=== PATIENT | female | born 1955 | race Caucasian/White ===

== ENCOUNTER 2017-03-27 10:27 | Inpatient (IN) | payer BC ==
--- NOTE | 2017-03-18 15:36 | HP ---
HISTORY AND PHYSICAL: DATE OF ADMISSION/SURGERY: 03/27/17. DATE OF OFFICE VISIT: 03/18/17. SURGEON: Carmel Meyer MD. * (DICTATED BY BISHNU NOLAN) PROCEDURE: Bilateral total knee arthroplasty. CHIEF COMPLAINT: Bilateral knee pain. HISTORY OF PRESENT ILLNESS: Ms. Quispe is a 61-year-old female with complaints of bilateral knee pain secondary to advanced osteoarthritis. She has failed conservative management and has elected to proceed with bilateral total knee arthroplasties which are scheduled for 03/27/17. PAST MEDICAL HISTORY: Hypertension, high cholesterol, and anxiety. PAST SURGICAL HISTORY: Bilateral knee arthroscopies, cataract excision, and a cyst removal. CURRENT MEDICATIONS: 1. Lisinopril/hydrochlorothiazide 20/25 mg daily. 2. Venlafaxine 75 mg 3 times a day. 3. Atorvastatin calcium 20 mg daily. 4. Acyclovir 400 mg twice daily. ALLERGIES: To BACTRIM and BACITRACIN. FAMILY HISTORY: Cancer and heart disease. SOCIAL HISTORY: A 61-year-old female lives with her . She is an entry level accountant. She does not smoke or use drugs. She uses occasional alcohol. REVIEW OF SYSTEMS: A complete 14-point review of systems is reviewed with the patient is all negative. PHYSICAL EXAMINATION GENERAL: She is well-developed, well-nourished, in no acute distress. VITAL SIGNS: She stands 5 feet 5 inches tall, weighs 197 pounds. Her blood pressure is 124/72, heart rate 78. HEENT: Normocephalic, atraumatic. NECK: Supple. No palpable lymph nodes. PULMONARY: Lungs are clear to auscultation bilaterally. CARDIO: Regular rate and rhythm. Strong S1 and S2. ABDOMEN: Soft, nontender, nondistended. MUSCULOSKELETAL: Bilateral lower extremities: The skin is intact. There are no open wounds or abrasions. She has moderate joint effusions bilaterally. Tenderness over the medial and lateral joint lines bilaterally. No varus or valgus instability. Intact sensation. 2+ dorsalis pedis pulses bilaterally. All of her lower extremity muscular strengths are intact at 5/5 bilaterally. She has 10 to 120 degrees flexion with patellofemoral crepitus of both knees. ASSESSMENT AND PLAN: Ms. Quispe is a 61-year-old female with complaints of bilateral knee pain secondary to advanced osteoarthritis. She has failed conservative management, has elected to proceed with bilateral total knee arthroplasties which are scheduled for 03/27/[address] Meyer discussed the risks and benefits of the surgery at today's visit and all of her questions were answered. Coumadin, Colace and Percocet were sent to her pharmacy for postoperative pain control and DVT prophylaxis. She will see Dr. Meyer back 2 weeks after the surgery. BISHNU NOLAN [id number]/[facility] #: [id number] MTDNahid
[~2017-03-27 10:27] MED LIST: Buffered Lidocaine 0.9% SYRIN* 5 ML/SYR SYRINGE INTRADERM ONE; Dexamethasone IV* 4 MG/ML 1 ML (4 MG) IV SLOW PU ONE; Famotidine IV* 10 MG/ML 2 ML (20 mg) IV ONE
[2017-03-27] MEDS ORDERED: ceFAZolin 2 GM PREMIX (*) 2 GM/50 ML BAG IVPB ONE (10:50)
[2017-03-27] MEDS ORDERED: Buffered Lidocaine 0.9% SYRIN* 5 ML/SYR SYRINGE ONE (10:50)
[2017-03-27] MEDS ORDERED: Dexamethasone IV* 4 MG/ML 1 ML (4 MG) ONE (10:50)
[2017-03-27] MEDS ORDERED: Famotidine IV* 10 MG/ML 2 ML (20 mg) ONE (10:50)
[2017-03-27] MEDS ORDERED: Propofol* 10 MG/ML 20 ML BTL IV PUSH ONE ×3 (11:22→14:29)
[2017-03-27] MEDS ORDERED: Morphine PF AMP (0.5MG/ML)* 5 MG/10 ML AMP ONE (12:09)
[2017-03-27] MEDS ORDERED: Bupivacaine 0.5% SDV PF* 30 ML VIAL ONE (12:09)
[2017-03-27] MEDS ORDERED: Ondansetron INJ* 2 MG/ML VIAL ONE (12:09)
[2017-03-27] MEDS ORDERED: KETAMINE HCL* 50 MG/ML 10 ML VIAL ONE (12:09)
[2017-03-27] MEDS ORDERED: Midazolam* 1 MG/ML 5 ML VIAL (5 MG) ONE ×2 (12:09→13:20)
[2017-03-27] MEDS ORDERED: Lidocaine 2% PF * 5 ML VIAL ONE (13:35)
[2017-03-27] MEDS ORDERED: Metoclopramide IV* 5 MG/ML 2 ML VIAL ONE (13:35)
[2017-03-27] MEDS ORDERED: Glycopyrrolate IV* 0.2 MG/ML 1 ML VIAL ONE (13:37)
[2017-03-27] MEDS ORDERED: Naloxone* 0.4 MG/ML 1 ML VIAL IV PRN (13:52)
[2017-03-27] MEDS ORDERED: Nalbuphine* 20 MG/ML 1 ML VIAL IV PRN ×2 (13:52)
[2017-03-27] MEDS ORDERED: oxyCODONE/Acetamin 5/325 MG* TAB PO PRN ×2 (13:52)
[2017-03-27] MEDS ORDERED: Ondansetron INJ* 2 MG/ML VIAL IV PRN (13:52)
[2017-03-27] MEDS ORDERED: DiMENhydriNATE IV* 50 MG/ML VIAL IV PUSH PRN (13:52)
[2017-03-27] MEDS ORDERED: Scopolamine 1.5 mg* PATCH TRANSDERM SCH (14:00)
[2017-03-27] MEDS ORDERED: Ropivacaine* 300 MG in NS 0.9% 250 ML* 240 ML EPIDURAL SCH (14:00)
[2017-03-27] MEDS ORDERED: Polyethylene Glycol 3350* 17 GM PACKET PO PRN (15:55)
[2017-03-27] MEDS ORDERED: Magnesium Hydroxide LIQ* 30 ML UDC PO PRN (15:55)
[2017-03-27] MEDS ORDERED: Acetaminophen TAB* 325 MG PO PRN (15:55)
[2017-03-27] MEDS ORDERED: Bisacodyl SUPP* 10 MG SUPP PR PRN (15:55)
[2017-03-27] MEDS ORDERED: diPHENhydraMINE IV* 50 MG/ML 1 ml VIAL (BENADRYL) IV PRN (15:55)
[2017-03-27] MEDS ORDERED: Warfarin TAB(*) 6 MG PO ONE (17:00)
[2017-03-27] MEDS ORDERED: diPHENhydraMINE IV* 50 MG/ML 1 ml VIAL (BENADRYL) ONE (17:19)
--- NOTE | 2017-03-27 17:51 | RAD ---
Indication: Right knee replacement. 2 views of the right knee are reviewed. Patient is status post bipolar right knee arthroplasty in satisfactory position. IMPRESSION: Bilateral knee arthroplasty in satisfactory position.
--- NOTE | 2017-03-27 18:35 | RAD ---
Indication: Left knee pain. 2 views of left knee demonstrates left knee replacement in satisfactory position. No loosening is noted. IMPRESSION: Left knee replacement in satisfactory position.
[2017-03-27] MEDS: Docusate CAP* 100 MG PO SCH (20:44)
[2017-03-27] MEDS: CMCS:Venlafaxine TAB (NF) 25 MG TAB PO SCH (20:44)
[2017-03-27] MEDS: Clindamycin 600 MG IVPREMIX(* 600 MG/50 ML SDV IV SCH (20:46)
--- NOTE | 2017-03-27 23:10 | CONS ---
CC: BISHNU Cancino; Dr. Siu; Dr. Meyer* CONSULTATION REPORT: DATE OF CONSULT: 03/27/17 PRIMARY CARE PROVIDER: BISHNU Cancino. REASON FOR CONSULTATION: Status post bilateral knee replacements. The patient with history of hypertension. PHYSICIAN REQUESTING THE CONSULT: Dr. Meyer. CHIEF COMPLAINT: Postoperative itching and the patient on Duramorph. HISTORY OF PRESENT ILLNESS: Alejandrina Quispe is a 61-year-old female with history of bilateral knee osteoarthritis as well as hypertension, who is today status post bilateral knee replacement surgery by Dr. Meyer. The patient currently has epidural analgesia with Duramorph and complains of itching and pruritus in the skin of abdomen and lower back. The patient denies any pain. The patient is seen for postoperative evaluation for hypertension showing control. PAST MEDICAL HISTORY: 1. History of bilateral knee arthroscopies in the past. 2. History of cataract surgeries in the past. 3. History of superficial abdominal cyst removal when the patient was 9 years old. 4. Hypertension. 5. High cholesterol. 6. Anxiety. 7. History of herpes simplex. MEDICATIONS: At home include: 1. Lisinopril/hydrochlorothiazide 20/25 mg daily. 2. Venlafaxine 75 mg, the patient takes it 3 times a day. 3. Lipitor 20 mg daily. 4. Acyclovir 400 mg twice a day. ALLERGIES: Include AMPICILLIN and BACITRACIN. FAMILY HISTORY: Positive for father who of liver cirrhosis. Mother with history of pacemaker placement, hypertension, and dyslipidemia. The patient's daughter has history of hypercoagulable state. The patient's brother in his 60s secondary to esophageal cancer. SOCIAL HISTORY: The patient lives with her . She is an revenue accountant. She denies any tobacco, alcohol, or drug use. Her surrogate decision maker is her . REVIEW OF SYSTEMS: Please see history of present illness. Please note that the patient is postoperative and mildly sedated. All 12 systems were reviewed with the patient and were otherwise negative. PHYSICAL EXAM: Vital Signs: Blood pressure 122/71, respiratory rate 16, oxygen saturation 98% on 2 L of oxygen via nasal canula, temperature of 97.3, heart rate of 69. General: The patient is a 61-year-old female who is mildly obese. The patient is in no acute distress. Alert, awake, and oriented x3. HEENT: Head: Atraumatic, normocephalic. Eyes: Pupils are equal and reactive to light and accommodation. Oropharynx clear. Mucosa moist. Neck: Supple. No JVD, no bruits bilaterally. Cardiovascular: Regular rate and rhythm. No murmurs. Respiratory: Clear to auscultation bilaterally. Abdomen: Soft, nontender. Bowel sounds are present in all 4 quadrants. Extremities: Postoperative dressings in bilateral knees not removed. The patient's bilateral lower extremities are in SCDs. There is no edema present. Pulses are +2 bilaterally. There is no clubbing or cyanosis. Skin: On evaluation of the skin, no ecchymotic areas or rashes noted. Neuro Evaluation: Cranial nerves II through XII grossly intact. Speech clear. Motor strength is grossly 5/5 bilaterally. The patient is able to flex her knees despite being just postoperative. DIAGNOSTIC STUDIES/LAB DATA: None currently available. ASSESSMENT AND PLAN: 1. A 61-year-old female in postop state after bilateral knee replacement surgery. The management of pain control, intravenous fluids postoperatively will be left up to Dr. Meyer and his Orthopedic Surgical Service. 2. For the patient's history of depression and anxiety, venlafaxine is going to be continued. 3. For the patient's history of hypertension, my recommendation will be to hold the patient's antihypertensives for at least 24 hours and then restart them if the patient's blood pressure is continued to climb. Currently, the patient is normotensive and with the epidural most likely we will continue normotensive or may be even at risk for hypotension in the next 24 hours. 4. DVT prophylaxis is as per Dr. Meyer, who started the patient already on Lovenox. TIME SPENT: Approximately 52 minutes were spent on consultation of this patient. Thank you very much for consultation. We will see the patient tomorrow. [id number]/[facility] #: [id number] [facility] HOSPITALNahid
[2017-03-28 04:59] LABS: Hematocrit 30 % (35-47); Hemoglobin 10.1 g/dl (12.0-16.0)
[2017-03-28] MEDS: Clindamycin 600 MG IVPREMIX(* 600 MG/50 ML SDV IV SCH ×2 (05:02→13:00)
[2017-03-28 05:13] LABS: BUN/Creatinine Ratio 27.1 (8-20); Calcium 8.6 mg/dL (8.6-10.3); EGFR African American 108.7 (>60); EGFR Non-African American 84.5 (>60)
[2017-03-28] MEDS ORDERED: Ondansetron TAB* 4 MG PO PRN (06:00)
[2017-03-28] MEDS ORDERED: oxyCODONE/Acetamin 5/325 MG* TAB PO PRN (06:00)
[2017-03-28] MEDS ORDERED: Morphine INJ* 2 MG/ML 1 ML SYRINGE (TWO MG - NEW SYRINGE VERSION) IV PRN (06:00)
[2017-03-28] MEDS ORDERED: oxyCODONE TAB* 5 MG TAB PO PRN (06:00)
[2017-03-28] MEDS ORDERED: Ondansetron INJ* 2 MG/ML VIAL IV PRN (06:00)
[2017-03-28] MEDS: Docusate CAP* 100 MG PO SCH ×2 (08:05→22:07)
[2017-03-28] MEDS: CMCS:Venlafaxine TAB (NF) 25 MG TAB PO SCH ×3 (08:06→22:07)
[2017-03-28] MEDS: Atorvastatin* 20 MG TAB PO SCH (08:06)
[2017-03-28] MEDS: Acyclovir* 400 MG TAB PO SCH (08:06)
[2017-03-28] MEDS ORDERED: Lisinopril/HCTZ 20/25(NF) TAB PO SCH (09:00)
--- NOTE | 2017-03-28 09:14 | PN ---
Progress Note - Progress Note Date of Service: 03/28/17 SOAP: Subjective: Pt. is alert, pain controlled. Objective: BLE - drains removed, tips intact. dressings c/d/i. distally +df/pf. full slt , 2+ dp pulses. Vital Signs: Temp Pulse Resp BP Pulse Ox 98.8 F 83 18 149/71 98 03/28/17 07:28 03/28/17 07:28 03/28/17 08:05 03/28/17 07:28 03/28/17 07:59 Laboratory Results - last 24 hr 03/28/17 03/28/17 03/28/17 04:30 04:30 04:31 Hgb 10.1 L Hct 30 L INR (Anticoag Therapy) 1.05 Sodium 135 Potassium 4.0 Chloride 101 Carbon Dioxide 30 Anion Gap 4 BUN 19 Creatinine 0.70 Est GFR ( Amer) 108.7 Est GFR (Non-Af Amer) 84.5 BUN/Creatinine Ratio 27.1 H Glucose 145 H Calcium 8.6 Assessment: 61 yo F pod 1 s/p BTKA Plan: lovenox today, 8 mg coumadin tonight wbat pt/ot pmru consult
--- NOTE | 2017-03-28 10:20 | PN ---
Subjective Date of Service: 03/28/17 Interval History: Pt is off epidural anesthesia. Feels "sore" in b/l legs Objective Active Medications: Acetaminophen (Tylenol Tab*) 650 mg PO Q4H PRN PRN Reason: PAIN OR TEMPERATURE Acyclovir (Zovirax Tab*) 800 mg PO QAM [facility] Last Admin: 03/28/17 08:06 Dose: 800 mg Atorvastatin Calcium (Lipitor*) 20 mg PO QAM [facility] Last Admin: 03/28/17 08:06 Dose: 20 mg Bisacodyl (Dulcolax Supp*) 10 mg OH DAILY PRN PRN Reason: constipation Diphenhydramine HCl (Benadryl Iv*) 12.5 mg IV Q6H PRN PRN Reason: PRURITIS Last Admin: 03/27/17 17:20 Dose: 12.5 mg Docusate Sodium (Colace Cap*) 100 mg PO BID [facility] Last Admin: 03/28/17 08:05 Dose: 100 mg Enoxaparin Sodium (Lovenox(*)) 30 mg SUBCUT Q24H [facility] Clindamycin HCl/Dextrose (Cleocin 600 Mg Ivpremix(*) Sdv) 600 mg in 50 mls @ 100 mls/hr IV Q8H [facility] Stop: 03/28/17 13:29 Last Admin: 03/28/17 05:02 Dose: 100 mls/hr Lactated Ringer's (Lactated Ringers 1000 Ml Bag*) 1,000 mls @ 100 mls/hr IV PER RATE [facility] Last Admin: 03/28/17 05:01 Dose: 100 mls/hr Lactulose (Lactulose*) 30 ml PO Q6H PRN PRN Reason: constipation Magnesium Hydroxide (Milk Of Magnesia Liq*) 30 ml PO Q6H PRN PRN Reason: constipation Morphine Sulfate (Morphine Inj (Syringe)*) 2 mg IV Q2H PRN PRN Reason: PAIN Ondansetron HCl (Zofran Inj*) 4 mg IV Q6H PRN PRN Reason: nausea Ondansetron HCl (Zofran Tab*) 4 mg PO Q6H PRN PRN Reason: NAUSEA Oxycodone HCl (Roxycodone Tab*) 10 mg PO Q4H PRN PRN Reason: SEVERE PAIN Last Admin: 03/28/17 08:05 Dose: 10 mg Oxycodone/Acetaminophen (Percocet 5/325 Tab*) 1 tab PO Q3H PRN PRN Reason: PAIN - MODERATE Oxycodone/Acetaminophen (Percocet 5/325 Tab*) 2 tab PO Q3H PRN PRN Reason: PAIN - MODERATE Pharmacy Profile Note (Scopolomine Patch Remove*) 1 note PATCH OFF .AFTER 72 HOURS ONE Stop: 03/30/17 13:58 Polyethylene Glycol/Electrolytes (Miralax*) 17 gm PO DAILY PRN PRN Reason: Constipation Venlafaxine HCl (Effexor Tab (Nf)) 75 mg PO TID ANGELES PRN Reason: Protocol Last Admin: 03/28/17 08:06 Dose: 75 mg Warfarin Sodium (Coumadin Tab(*)) 8 mg PO ONCE@1700 ONE PRN Reason: Protocol Stop: 03/28/17 17:01 Vital Signs 03/27/17 03/27/17 03/27/17 10:53 16:36 16:40 Temperature 98.4 F 97.3 F Pulse Rate 69 67 60 Respiratory 18 16 16 Rate Blood Pressure 135/69 124/69 117/77 (mmHg) O2 Sat by Pulse 98 100 100 Oximetry 03/27/17 03/27/17 03/27/17 16:45 17:00 17:15 Temperature Pulse Rate 61 63 63 Respiratory 16 16 16 Rate Blood Pressure 115/69 110/64 106/64 (mmHg) O2 Sat by Pulse 100 100 100 Oximetry 03/27/17 03/27/17 03/27/17 17:22 17:30 18:09 Temperature 97.8 F Pulse Rate 69 77 Respiratory 16 16 16 Rate Blood Pressure 122/71 142/74 (mmHg) O2 Sat by Pulse 100 94 Oximetry 03/27/17 03/27/17 03/27/17 18:26 19:08 19:26 Temperature 98.8 F Pulse Rate 69 Respiratory 16 16 18 Rate Blood Pressure 150/84 (mmHg) O2 Sat by Pulse 100 Oximetry 03/27/17 03/27/17 03/27/17 19:52 20:00 20:04 Temperature 98.1 F Pulse Rate 76 Respiratory 16 14 16 Rate Blood Pressure 145/90 (mmHg) O2 Sat by Pulse 96 Oximetry 03/27/17 03/27/17 03/27/17 20:55 21:00 22:00 Temperature 99.1 F Pulse Rate 89 Respiratory 16 16 14 Rate Blood Pressure 128/79 (mmHg) O2 Sat by Pulse 100 Oximetry 03/27/17 03/28/17 03/28/17 23:54 00:56 01:52 Temperature 98.0 F Pulse Rate 96 Respiratory 16 14 16 Rate Blood Pressure 118/70 (mmHg) O2 Sat by Pulse 97 Oximetry 03/28/17 03/28/17 03/28/17 03:21 04:00 05:04 Temperature 98.3 F Pulse Rate 85 Respiratory 14 16 16 Rate Blood Pressure 133/52 (mmHg) O2 Sat by Pulse 98 Oximetry 03/28/17 03/28/17 03/28/17 07:04 07:28 07:59 Temperature 98.8 F Pulse Rate 83 Respiratory 18 17 17 Rate Blood Pressure 149/71 (mmHg) O2 Sat by Pulse 98 98 Oximetry 03/28/17 03/28/17 08:00 08:05 Temperature Pulse Rate Respiratory 18 18 Rate Blood Pressure (mmHg) O2 Sat by Pulse Oximetry Oxygen Devices in Use Now: None - 02 sat 90% Appearance: 61 yo f in nAD, AAOx3 Eyes: No Scleral Icterus, PERRLA Ears/Nose/Mouth/Throat: NL Teeth, Lips, Gums, Mucous Membranes Moist Neck: NL Appearance and Movements; NL JVP, Trachea Midline Respiratory: Symmetrical Chest Expansion and Respiratory Effort, Clear to Auscultation Cardiovascular: NL Sounds; No Murmurs; No JVD, RRR Abdominal: NL Sounds; No Tenderness; No Distention Lymphatic: No Cervical Adenopathy Extremities: No Clubbing, Cyanosis, - - b/l knees wrapped in cryo unit Skin: No Nodules or Sclerosis, - - post op dressings on both knees were not removed Neurological: Alert and Oriented x 3, NL Muscle Strength and Tone Result Diagrams: 03/28/17 04:30 03/28/17 04:30 Assess/Plan/Problems-Billing Assessment: 61 yo F with h/o HTN, herpes simplex, depression consulted for post om medical management of HTN - Patient Problems (1) Total knee replacement status Comment: b/l POD#[address] Meyer following (2) HTN (hypertension) Comment: normotensive off meds Recommend holding meds for 2 more days, or till BP increases (3) Herpes simplex Comment: controlled with Acyclovir (4) DVT prophylaxis Comment: Lovenox and coumadin as per ortho Status and Disposition: Thank you very much for consult. will sign off Please call if needed
--- NOTE | 2017-03-28 11:06 | OP ---
OPERATIVE REPORT: DATE OF OPERATION: 03/27/17 DATE OF : 51 SURGEON: Carmel Meyer MD ADMISSIONS ASSISTANT: BISHNU Gong Ms. did help throughout the procedure with preparation of the leg, wound retraction, manipulation of the knee, and wound closure. ANESTHESIOLOGIST: Dr. Kerr. ANESTHESIA: Spinal. PRE-OP DIAGNOSIS: Severe degenerative osteoarthritis of the bilateral knees. POST-OP DIAGNOSIS: Severe degenerative osteoarthritis of the bilateral knees. OPERATIVE PROCEDURE: Bilateral total knee arthroplasty. HARDWARE USED: This is cemented [employer] total knee arthroplasty hardware. Two packages of bone cement were used on each side. For the right knee, a size 5 narrow right posterior stabilized Legion Oxinium femoral component. For the tibia, size 3 right tibial baseplate. For the patella, 32- mm, 3-peg, all-poly patella; and for the insert, an 11 mm posterior stabilized size 3-4 articular insert. For the left knee, a left size 5, narrow Oxinium posterior stabilized Legion femoral component was used with a left size 4 tibial baseplate; 35-mm, 3-peg, all-poly patella and for the insert, a size 3-4 , 11-mm posterior stabilized articular insert. TOURNIQUET TIME: Through the right side 45 minutes, left side 48 minutes. COMPLICATIONS: None. ESTIMATED BLOOD LOSS: 400 cc. SPECIMENS: Bone and cartilage from the bilateral knees sent to Pathology. BRIEF HISTORY/INDICATION: Ms. Quispe is a 61-year-old female with years of increasingly severe bilateral knee pain. She elected to undergo bilateral total knee arthroplasty due to continued pain and decreased quality of life. She failed conservative treatment with antiinflammatories, pain medications, physical therapy, and intraarticular injections. Radiographs showed bone-on- bone contact and severe arthritis of the bilateral knees. She understood there was increased risk associated with bilateral knees rather than staged procedures in my opinion. She adamantly wished to proceed with bilateral total knee arthroplasty. Informed consent was obtained from the patient. She understood the risks of the procedure included, but were not limited to, bleeding, infection, damage to nearby structures, continued pain, need for further surgery, intraoperative fracture, nerve palsy, hardware failure or loosening, knee stiffness, loss of motion, stroke, heart attack, blood clot, and . She wished to proceed. INTRAOPERATIVE FINDINGS: Intraoperatively, the patient was noted to have bilateral severe end-stage arthritis. She had bilateral tricompartmental loss of cartilage, which was full thickness. DESCRIPTION OF PROCEDURE: Ms. Quispe was identified in the preanesthesia unit. Her bilateral lower extremities were both marked as the correct operative side. Informed consent was signed and placed in the chart. The patient was taken to the operating room and placed under spinal anesthesia. Albarran catheter was placed. Tourniquets were placed on the bilateral thighs. Bilateral lower extremities were prepped and draped in the usual sterile fashion. Right lower extremity was covered with a half sheet. Preop time-out was made to correctly identify the patient, side, and site. Appropriate perioperative antibiotics were given within 1 hour of incision. Surgery was started on the left knee first. Tourniquet was inflated until the tourniquet time for this procedure was 48 minutes. A 14 cm midline incision was made with the 10 blade and carried down to the extensor mechanism. A new 10 blade was used to make a standard medial parapatellar arthrotomy. Patella was subluxed laterally. Electrocautery was used to subperiosteally elevate soft tissue off the superomedial tibia to the mid sagittal plane. Any osteophytes were removed from the medial tibia. The knee was flexed up. The anterior horn of the lateral meniscus and ACL were sharply released. A drill was used to enter the distal femur. Intramedullary distal femoral cutting guide was pinned on the distal femur. Oscillating saw was used to make the appropriate distal femoral cut. The external rotation guide was pinned on the distal femur and the distal femur was sized to a size 5. Size 5 multi-cutting jig was pinned on the distal femur. The oscillating saw was used to make the appropriate chamfer cuts. The PCL was completely released. The tibia was subluxed anteriorly. Extramedullary tibial cutting guide was pinned on the proximal tibia. The oscillating saw was used to make the appropriate proximal tibial cut. This cut was made perpendicular to the mechanical axis of the tibia. The bone was carefully removed. The knee was brought out into full extension. The spacer block had good fit. Medial and lateral ligaments were well balanced. Flexion and extension gaps were well balanced. Laminar spreaders were placed both medially and laterally. Any remaining meniscus was carefully removed from the medial and lateral compartments. Posterior osteophytes were removed using a curved osteotome. The left size 5 narrow femoral component trial was impacted on to the distal femur and had good fit. The box of the posterior stabilized implant was prepared using a reamer and box cut osteotome. Size 4 tibial tray trial with an 11 mm insert trial was placed and the knee was taken through a range of motion. The knee had full extension to 130 degrees of flexion with satisfactory patellofemoral tracking. The patella was everted. A 9 mm of patellar bone and cartilage were carefully removed from the patella. The patella was sized to a size 35. The 3 peg holes were drilled through the size 35 guide. A 35 trial patella was placed and the knee was taken through a range of motion. There was satisfactory patellofemoral tracking. All trials were carefully removed. The tibia was subluxed anteriorly and sized to a size 4. The proximal tibia was prepared using a size 4 keel punch. All bony cut surfaces were copiously irrigated with sterile saline and dried. Final implants were cemented into place, starting with the tibia followed by the femur, and lastly the patella. An 11-mm insert trial was placed. The knee was brought out into full extension. The tourniquet was turned down at 48 minutes. The knee was copiously irrigated with sterile saline. Electrocautery was used to obtain meticulous hemostasis. Once the cement had fully cured, the insert trial was removed. Any excess cement was carefully removed from around the implant and capsule. Final insert chosen was an 11 mm posterior stabilized articular insert, size 3-4. This was locked into position on the tibial tray. Stability of the insert was checked and rechecked and noted to be stable. The knee was copiously irrigated with sterile saline. The extensor mechanism was closed over a medium Hemovac drain using interrupted #1 Vicryls. The rest of the incision was closed in a layered fashion using 0 and 2-0 Vicryls. Skin was closed using running 3-0 nylon suture. The incision was carefully covered with a half sheet. Attention was next turned to replacement of the right knee. Tourniquet was inflated. A 14-cm midline incision was made with a 10 blade and carried down to the extensor mechanism. A new 10 blade was used to make a standard medial parapatellar arthrotomy. The patella was subluxed laterally. Electrocautery was used to subperiosteally elevate soft tissue off the superomedial tibia to the midsagittal plane. Any medial osteophytes from the tibia were carefully removed with the rongeur. The knee was flexed up. The anterior horn of the lateral meniscus and ACL were sharply released. A drill was used to enter the distal femur. Intramedullary distal femoral cutting guide was pinned on the distal femur. Oscillating saw was used to make the appropriate distal femoral cuts. The external rotation guide was pinned on the distal femur. The distal femur was sized to a size 5. Size 5 multi-cutting jig was pinned on the distal femur. The oscillating saw was used to make the appropriate 4 chamfer cuts. The PCL was sharply released. The tibia was subluxed anteriorly. Extramedullary tibial cutting guide was pinned on the proximal tibia. The proximal tibial cut was made with an oscillating saw. This cut was made perpendicular to the mechanical axis of the tibia. The bone was carefully removed. The knee was brought out into full extension. The spacer block had good fit. There was medial and lateral ligamentous balancing. Flexion and extension gaps were well balanced. The knee was flexed up. Laminar set up mechanic automatic line was placed both medially and laterally. Any remaining meniscus was carefully removed using electrocautery. Curved osteotome was used to remove any posterior osteophytes. Tibial tray and drop alexis confirmed satisfactory tibial cut. A size 5 narrow right femoral component trial was impacted on to the distal femur and had good fit. The box for the posterior stabilized implant was prepared using the reamer and box cut osteotome. A size 4 tibial tray trial with an 11 mm insert trial was placed. The knee was taken through a range of motion and had full extension to 130 degrees of flexion. There was satisfactory patellofemoral tracking. The patella was everted. A 9 mm of patellar bone and cartilage was carefully removed using an oscillating saw. The patella was sized to a size 32. The 3 peg holes were drilled through the size 32 guide. Trial size 32 patella was placed. The knee was taken through a range of motion. There was satisfactory patellofemoral tracking. All trials were carefully removed. The tibia was subluxed anteriorly and sized to a size 4. Proximal tibia was prepared using a size 4 keel punch. All bony cut surfaces were copiously irrigated with sterile saline and dried. Final implants were cemented into place starting with the tibia followed by the femur and lastly the patella. An 11-mm insert trial was placed and the knee was brought out into full extension. Tourniquet was turned down at 45 minutes. The knee was copiously irrigated with sterile saline. Electrocautery was used to obtain meticulous hemostasis. Once the cement had fully cured, the insert trial was carefully removed. Any excess cement was removed from around the capsule and implant. Final insert chosen was an 11-mm posterior stabilized articular insert, size 3-4. This was locked into position on the tibial tray. Stability of the insert was checked and rechecked and noted to be stable. The knee was copiously irrigated with sterile saline. The extensor mechanism was closed over a medium Hemovac drain using interrupted #1 Vicryls. The rest of the incision was closed in a layered fashion using 0 and 2-0 Vicryls. Skin was closed using running 3-0 nylon suture. At this time, both incisions were covered with sterile Xeroform, 4x4's, and Webril. Shiva wrap and cold packs were placed over the dressings. The patient's anesthesia was reversed and she was taken to the PACU in stable condition. Intended weightbearing will be weightbearing as tolerated on her bilateral lower extremities. She will have Coumadin for DVT prophylaxis with a Lovenox bridge. [id number]/[facility] #: [id number] MONIQUE
[2017-03-28] MEDS: oxyCODONE/Acetamin 5/325 MG* TAB PO PRN ×3 (12:15→22:08)
[2017-03-28] MEDS ORDERED: Enoxaparin(*) 30 MG/0.3 ML SYR SUBCUT SCH (13:00)
[2017-03-28] MEDS ORDERED: Warfarin TAB(*) 4 MG PO ONE (17:00)
[2017-03-29] MEDS: oxyCODONE/Acetamin 5/325 MG* TAB PO PRN ×5 (04:12→19:53)
[2017-03-29 06:34] LABS: Hematocrit 25 % (35-47); Hemoglobin 8.7 g/dl (12.0-16.0); Mean Platelet Volume 7 um3 (7.4-10.4)
--- NOTE | 2017-03-29 07:27 | PN ---
Progress Note - Progress Note Date of Service: 03/29/17 SOAP: Subjective: Pt. is alert, reports moderate pain. Objective: BLE - dressings changed, inc c/d/i. distally nvi. Vital Signs: Temp Pulse Resp BP Pulse Ox 97.8 F 77 16 142/74 94 03/29/17 07:17 03/29/17 07:17 03/29/17 07:17 03/29/17 07:17 03/29/17 07:17 Laboratory Results - last 24 hr 03/29/17 03/29/17 06:15 06:15 Hgb 8.7 L Hct 25 L Plt Count 175 MPV 7 L INR (Anticoag Therapy) 1.99 H Assessment: 61 yo F pod 2 s/p BTKA Plan: pt.ot wbat d/c lovenox, 3 mg lovenox tonight plan d/c to [facility] today if accepted, otherwise snf on 03/30
[2017-03-29] MEDS: Acyclovir* 400 MG TAB PO SCH (08:18)
[2017-03-29] MEDS: Atorvastatin* 20 MG TAB PO SCH (08:18)
[2017-03-29] MEDS: CMCS:Venlafaxine TAB (NF) 25 MG TAB PO SCH ×3 (08:18→19:54)
[2017-03-29] MEDS: Docusate CAP* 100 MG PO SCH ×2 (09:39→19:53)
[2017-03-29] MEDS ORDERED: Warfarin TAB(*) 3 MG PO ONE (17:00)
[2017-03-30] MEDS: oxyCODONE/Acetamin 5/325 MG* TAB PO PRN ×5 (03:47→20:23)
[2017-03-30 06:09] LABS: Hematocrit 23 % (35-47); Hemoglobin 8.2 g/dl (12.0-16.0)
--- NOTE | 2017-03-30 08:32 | PN ---
Progress Note - Progress Note Date of Service: 03/30/17 SOAP: Subjective: Pt seen sitting up in bed today. States she is doing very well, pain well controlled. Denies any numbness, tingling, chest pain, coughing or calf pain. Objective: BLE - Dressings changed last evening by dr. edgar. Dressing are c/d/i. +pf/df. neurovascularly intact. Vital Signs: Vital Signs Temp 100.8 F 03/30/17 07:14 Pulse 98 03/30/17 07:14 Resp 18 03/30/17 07:14 BP 121/50 03/30/17 07:14 Pulse Ox 99 03/30/17 07:14 Intake & Output 03/29/17 03/30/17 03/30/17 18:59 06:59 18:59 Intake Total 780 860 Output Total 900 700 Balance -120 160 Intake: Oral 780 860 Output: Urine 900 700 Assessment: 61 yo F pod 3 s/p BTKA Plan: pt.ot wbat INR 3.00, hold warfarin tonight plan d/c to [facility] today if accepted.
[2017-03-30] MEDS: Docusate CAP* 100 MG PO SCH ×2 (08:38→20:20)
[2017-03-30] MEDS: CMCS:Venlafaxine TAB (NF) 25 MG TAB PO SCH ×3 (08:38→20:21)
[2017-03-30] MEDS: Acyclovir* 400 MG TAB PO SCH (08:38)
[2017-03-30] MEDS: Atorvastatin* 20 MG TAB PO SCH (08:38)
[2017-03-30] MEDS ORDERED: Scopolomine PATCH Remove* 1 NOTE MISC PATCH OFF ONE (13:57)
[2017-03-31] MEDS: oxyCODONE/Acetamin 5/325 MG* TAB PO PRN ×4 (00:14→12:51)
[2017-03-31 05:03] LABS: Hematocrit 21 % (35-47); Hemoglobin 7.3 g/dl (12.0-16.0)
[2017-03-31] MEDS: Atorvastatin* 20 MG TAB PO SCH (09:40)
[2017-03-31] MEDS: Docusate CAP* 100 MG PO SCH (09:40)
[2017-03-31] MEDS: Acyclovir* 400 MG TAB PO SCH (09:40)
[2017-03-31] MEDS: CMCS:Venlafaxine TAB (NF) 25 MG TAB PO SCH ×2 (09:41→12:52)
--- NOTE | 2017-03-31 09:58 | PN ---
Progress Note - Progress Note Date of Service: 03/31/17 SOAP: Subjective: Pt sitting up comfortably in bed. No complaint of pain. Denies dizziness/ lightheadedness, CP, SOB. Objective: Dressings changed. Incisions clean, Dry, intact. Calves soft, nontender. 2+ DP pulses. Sensation intact to light touch. Vital Signs: Temp Pulse Resp BP Pulse Ox 99.0 F 84 16 122/65 100 03/31/17 07:42 03/31/17 07:42 03/31/17 09:40 03/31/17 07:42 03/31/17 07:42 Laboratory Last Values Hgb 7.3 g/dl (12.0-16.0) L 03/31/17 04:43 Hct 21 % (35-47) L 03/31/17 04:43 Plt Count 175 10^3/ul (150-450) 03/29/17 06:15 MPV 7 um3 (7.4-10.4) L 03/29/17 06:15 INR (Anticoag Therapy) 4.03 (0.89-1.11) H 03/31/17 04:43 Sodium 135 mmol/L (133-145) 03/28/17 04:30 Potassium 4.0 mmol/L (3.5-5.0) 03/28/17 04:30 Chloride 101 mmol/L (101-111) 03/28/17 04:30 Carbon Dioxide 30 mmol/L (22-32) 03/28/17 04:30 Anion Gap 4 mmol/L (2-11) 03/28/17 04:30 BUN 19 mg/dL (6-24) 03/28/17 04:30 Creatinine 0.70 mg/dL (0.51-0.95) 03/28/17 04:30 Est GFR ( Amer) 108.7 (>60) 03/28/17 04:30 Est GFR (Non-Af Amer) 84.5 (>60) 03/28/17 04:30 BUN/Creatinine Ratio 27.1 (8-20) H 03/28/17 04:30 Glucose 145 mg/dL (70-100) H 03/28/17 04:30 Calcium 8.6 mg/dL (8.6-10.3) 03/28/17 04:30 Assessment: 61 yo female s/p B/L TKA POD #4 Plan: OOB PT/OT WBAT B/L LE Pain control Acute postop blood loss anemia - VS stable. Asymptomatic. Pt refusing transfusion. Hold coumadin today. INR 4.03 A[address] SNF placement. D/C today when bed available.
[2017-03-31 12:45] VITALS: BP 119/54
--- NOTE | 2017-04-01 04:01 | DS ---
DISCHARGE SUMMARY: DATE OF ADMISSION: 03/27/17 DATE OF DISCHARGE: 03/31/17 ATTENDING PHYSICIAN: Carmel Meyer MD* (dictated by BISHNU Nunez). PRINCIPAL DIAGNOSIS: Bilateral knee osteoarthritis. SECONDARY DIAGNOSES: 1. Hypertension. 2. High cholesterol. 3. Anxiety. PRINCIPAL PROCEDURE: Bilateral total knee arthroplasty. REASON FOR HOSPITALIZATION: Ms. Quispe is a 61-year-old female with complaints of bilateral knee pain secondary to advanced osteoarthritis. She has failed conservative management and has elected to proceed with bilateral total knee arthroplasties, which were scheduled for 03/27/[address] Meyer. HOSPITAL COURSE: The patient was admitted to the hospital on 03/27/17 and underwent bilateral total knee arthroplasties without any complications. She was taken to the recovery room subsequently via surgical stay unit in a stable condition. Her vital signs remain stable throughout the hospital course, including remaining afebrile. She has participated in occupational therapy and physical therapy and did well with both. She had daily INRs drawn for Coumadin dosing. She was therapeutic at the day of discharge. Her INR was 4.03 and her Coumadin was held on the day of discharge. Her hemoglobin and hematocrit were checked throughout the hospital course. Her hemoglobin was 7.3 and hematocrit was 21 on the day of discharge. The patient refused transfusion. She was asymptomatic and vital signs remained stable. She was taking Percocet for pain control and she was discharged to [facility] on 03/31/17 in a stable condition. DISCHARGE INSTRUCTIONS: Weightbearing as tolerated in the bilateral lower extremities. Wound care, okay to shower. No bathing, swimming, submerging wound. Use gentle soap, pat dry, cover with gauze, Shiva wrap or tape. Call orthopedic office for increasing drainage, redness, increased pain or fever. Go to ER with shortness of breath or chest pain. Diet, regular diet, increase fluids and fiber to prevent constipation. Continue to use stool softeners, call office if no bowel movement within 48 hours. Continue physical therapy and occupational therapy exercises as shown. [facility] nurse to do wound checks. [facility] nurse to draw blood, work for INR on Mondays and . Coumadin dosing, hold Coumadin for tonight. Antibiotics required prior to any dental work. Follow up with Dr. Meyer within 10-14 days. Call for appointment. BISHNU NUNEZ [id number]/[facility] #: [id number] [facility]
== END 2017-03-31 12:57 | DRG 302 ==
LOC: AA 10:27 → SSU 18:00
PROVIDERS: ADMIT Orthopaedic Surgery Adult Reconstructive Orthopaedic Surgery; ATTEND Orthopaedic Surgery Adult Reconstructive Orthopaedic Surgery
PROC: 0SRC0J9 Replacement of Right Knee Joint with Synthetic Substitute, Cemented, Open Approach (ICD-10-PCS; 2017-03-27)
PROC: 0SRD0J9 Replacement of Left Knee Joint with Synthetic Substitute, Cemented, Open Approach (ICD-10-PCS; principal; 2017-03-27 12:00)
DX: M17.0 Bilateral primary osteoarthritis of knee (principal); D62 Acute posthemorrhagic anemia; I10 Essential (primary) hypertension; E78.00 Pure hypercholesterolemia, unspecified; F41.9 Anxiety disorder, unspecified; B00.9 Herpesviral infection, unspecified; F32.9 Major depressive disorder, single episode, unspecified; E66.3 Overweight; M25.762 Osteophyte, left knee; M25.761 Osteophyte, right knee; Z98.49 Cataract extraction status, unspecified eye; Z88.1 Allergy status to other antibiotic agents; Z88.2 Allergy status to sulfonamides; Z82.49 Family history of ischemic heart disease and other diseases of the circulatory system; Z72.89 Other problems related to lifestyle; Z88.0 Allergy status to penicillin; Z83.79 Family history of other diseases of the digestive system; Z80.0 Family history of malignant neoplasm of digestive organs; Z68.33 Body mass index [BMI] 33.0-33.9, adult
CPT/HCPCS: 36415; 80048; 85014; 85018; 85049; 85610; 94760; A9270-GY; C1776; J0690; J1100; J1200; J1650; J2250; J2300; J2405; J2704; J2765; J2795

== ENCOUNTER 2017-03-31 10:07 | Inpatient (IN) | payer BC ==
[2017-03-31] MEDS ORDERED: Senna TAB PO PRN (13:18)
[2017-03-31] MEDS ORDERED: Magnesium Hydroxide LIQ* 30 ML UDC PO PRN (13:18)
[2017-03-31] MEDS ORDERED: Acetaminophen TAB* 325 MG PO PRN (13:18)
[2017-03-31] MEDS ORDERED: Bisacodyl SUPP* 10 MG SUPP PR PRN (13:18)
[2017-03-31] MEDS ORDERED: oxyCODONE TAB* 5 MG TAB PO PRN (13:24)
[2017-03-31] MEDS: Venlafaxine EXT RELEASE CAP* 75 MG PO SCH ×2 (14:06→20:11)
[2017-03-31] MEDS: oxyCODONE TAB* 5 MG TAB PO PRN (17:30)
[2017-03-31] MEDS: oxyCODONE SR TAB(*) 20 MG TAB.SR PO SCH (20:10)
[2017-03-31] MEDS: Docusate CAP* 100 MG PO SCH (20:11)
--- NOTE | 2017-03-31 22:08 | HP ---
ADMISSION HISTORY AND PHYSICAL: DATE OF ADMISSION: 03/31/17 REASON FOR ADMISSION: Bilateral total knee replacements. HISTORY OF ILLNESS: Alejandrina Quispe is a 61-year-old female. She has little in the way of past medical history. She has a medical history significant for hypertension. The patient has had difficulty with pain in both knees for several years. She sought out consultation with Dr. Carmel Meyer. X-rays were taken, which revealed severe bilateral [id number] arthritis. The patient felt that her pain in both knees was so significant that she did not want to have one knee done at a time and asked Dr. Meyer to do a bilateral total knee replacement. Dr. Meyer agreed and she was admitted to [facility] on 03/27/17 and underwent a bilateral total knee replacement that day. Postoperatively, she was started on Coumadin, but her INR is currently supratherapeutic. Hemoglobin and hematocrit this morning was low, but she was not transfused. She did have acute blood loss anemia. She was felt to have physical therapy and occupational therapy needs. She is now being admitted for inpatient rehab, so that she may return to independent living. PAST MEDICAL HISTORY: Significant for hypertension, as mentioned. She also has a history of herpes simplex and high cholesterol. CURRENT MEDICATIONS: Include: 1. Effexor 75 mg 3 times a day. 2. Lipitor 20 mg daily. 3. Acyclovir 800 mg daily. Prior to surgery, she was also taking Zestoretic 20/25 daily. ALLERGIES: To AMPICILLIN and BACITRACIN. SOCIAL HISTORY: She lives with her in a 2-story house, but can stay on one floor. There is a ramp to enter the house. She is a nonsmoker, nondrinker. She was working full-time prior to admission. REVIEW OF SYSTEMS: The patient reports her last bowel movement was today. She has no current chest pain or shortness of breath. PHYSICAL EXAMINATION VITAL SIGNS: The patient's temperature is 99.3, blood pressure is 135/65, pulse is 83, respirations 20. HEENT: Her extraocular movements are intact. Tongue is midline. NECK: Supple. LUNGS: Sounds clear to auscultation bilaterally. HEART: Heart sounds are regular. S1, S2 are audible. ABDOMEN: Soft and nontender. EXTREMITIES: Her knees were examined. She had suture lines on both knees, which were clean and dry and intact. Stitches were in place. Her peripheral pulses were intact. NEUROLOGIC: She is awake, alert, and oriented. Her muscle strength is 5/5 in both upper extremities. Lower extremities were about 3/5, secondary to pain. She could not do a straight leg raise on either side. FUNCTIONAL EXAM: She transfers with minimal amount of assistance. ASSESSMENT: Bilateral total knee replacements. PLAN: Our plan is to integrate her into comprehensive therapeutic rehab program with the following goals: 1. Physical Therapy will see the patient. They are going to work on functional transfer training, ambulation training with a walker. 2. Occupational Therapy will see the patient and work on her activities of daily living including toileting and toilet transfers. 3. Coumadin for DVT prophylaxis. Her Coumadin is on hold because of her supratherapeutic INR. 4. Adequate analgesia. 5. Her bowels will be regulated. 6. family services assistant will be closely involved to make sure that any services and equipment that the patient requires are in place prior to discharge. 7. Family training as appropriate. 8. Advance directives: The patient is a full code. 9. For her acute blood loss anemia, we may need to transfuse her. We will check her hemoglobin and hematocrit in the morning. 10. Home with appropriate services. ESTIMATED LENGTH OF STAY: Five to seven days. [id number]/[facility] #: [id number] MONIQUE
[2017-04-01] MEDS: Acyclovir* 400 MG TAB PO SCH (07:58)
[2017-04-01] MEDS: Hydrochlorothiazide TAB* 25 MG PO SCH (07:58)
[2017-04-01] MEDS: Venlafaxine EXT RELEASE CAP* 75 MG PO SCH ×3 (07:59→20:16)
[2017-04-01] MEDS: oxyCODONE TAB* 5 MG TAB PO PRN ×4 (07:59→22:57)
[2017-04-01] MEDS: Docusate CAP* 100 MG PO SCH ×2 (07:59→20:16)
[2017-04-01 08:42] LABS: Hematocrit 24 % (35-47); Hemoglobin 8.1 g/dl (12.0-16.0); Mean Corpuscular HGB Conc 34 g/dl (31-36); Mean Corpuscular Hemoglobin 32 pg (27-31); Mean Corpuscular Volume 93 fL (80-97); Mean Platelet Volume 7 um3 (7.4-10.4); Red Blood Count 2.55 10^6/ul (4.0-5.4); Red Cell Distribution Width 13 % (10.5-15); White Blood Count 8.6 10^3/ul (3.5-10.8)
[2017-04-01] MEDS ORDERED: Lisinopril TAB* 10 MG PO SCH (09:00)
[2017-04-01 09:03] LABS: BUN/Creatinine Ratio 19.3 (8-20); Calcium 8.3 mg/dL (8.6-10.3); EGFR African American 137.8 (>60); EGFR Non-African American 107.1 (>60); Globulin 2.9 g/dL (2-4); Potassium 3.7 mmol/L (3.5-5.0); Total Bilirubin 0.6 mg/dL (0.2-1.0); Total Protein 5.9 g/dL (6.4-8.9)
--- NOTE | 2017-04-01 12:56 | PMRUTEAM ---
PMRU: Goals Current Status: Nursing: Current Status Skin Deviations [Bilateral Incision Knee] Skin Deviation Description [ bilat knee Bilateral Knee] Physical Therapy: Current Status Bed Mobility Assistance Not Tested Transfer Moblility Assistance Supervision Transfer/Bed Mobility Rolling Walker Recommended Devices Ambulation Assistance Supervision Ambulation Assistive Devices Rolling Walker Number of Feet Patient 150' Ambulated Stairs Assistance Supervision Stairs Recommended Devices Two Rails Number of Stairs 3 Occupational Therapy: Current Status Lower Body Dressing Supervision,Min Assist Bathing Supervision Toileting Supervision Toilet Transfer Supervision Shower Transfer Supervision Eating Independent Rec Therapy: Current Status Summary of Assessment and Pt. was open to conversation - very engaged Clinical Impression throughout and identified with numerous interests and activities. Pt. states she enjoys her life even though the past year has been very difficult for her emotionally with many losses. Provided support and offered additional help if needed. Pt . was in good spirits and open to continued leisure visits. Treatment Goals Pt. will engage in leisure activities while on the unit. Treatment Plan Provide RT services and encourage involvement. Social Work: Current Status Discharge Plan return home with home care svs and family support Potential for Family Training pt's is involved and attentive Anticipated Discharge Home Destination Discharge With home care svs and family support Goals: Physical Therapy: Updated Goals Transfer/Bed Mobility Rolling Walker Recommended Devices Occupational Therapy: Initial Goals Goals to be Completed in (Days 1-2 ) Upper Body Bathing Routine Independent Lower Body Bathing Routine Modified Independent with Upper Body Dressing Routine Independent Lower Body Dressing Routine Modified Independent with Lower Body Dressing Assistive Pt may wish to have assist with socks at Devices home, in which case min A. Toilet Hygeine and Clothing Modified Independent with Management Routine Toilet Transfer Routine Modified Independent with Step-In Shower Transfer Modified Independent with Routine Functional Transfers for ADL Modified Independent with Grooming Routine Independent Feeding Routine Independent Social Work: Goals Discharge Plan return home with home care svs and family support Potential for Family Training pt's is involved and attentive Anticipated Discharge Home Destination Discharge With home care svs and family support Care Plan: Care Plan ADL's - Improve/Maintain Start: 04/01/17 12:00 Freq: DAILY Status: Active Target: Activity Type Activity Date Activity User E-Sign Co-Sign Detail Recorded Client Recorded Date Recorded By Document 04/01/17 12:00 [id number] [id number] 04/01/17 12:01 [id number] 04/01/17 12:00 PMRU Outcome: ADL's/ADL Transfers Orders/Interventions Occupational Therapy Evaluation & Treatment Device Yes Patient to receive OT 5x/wk for 60-120 Therex min/day Self Care Management Group Therapy UE/LE ADL's with Assist Yes: mod I ADL Transfers with Assist Yes: mod I Toileting: Transfers,Clothing Management Yes: mod I ,Hygeine w/Assist Progression Toward Outcome/Goals Progressing DVT Prophylaxis- Improve/Maintain Start: 03/31/17 21:25 Freq: DAILY Status: Active Target: Activity Type Activity Date Activity User E-Sign Co-Sign Detail Recorded Client Recorded Date Recorded By Document 04/01/17 00:45 [id number] 04/01/17 00:48 [id number] 04/01/17 00:45 PMRU Outcome: DVT Prophylaxis Outcome/Goals Remains Free of DVT Complies with DVT Prophylaxis /Treatment TEDS Stockings on Every AM, Off at HS Education-Improve/Maintain Start: 03/31/17 21:25 Freq: DAILY Status: Active Target: Activity Type Activity Date Activity User E-Sign Co-Sign Detail Recorded Client Recorded Date Recorded By Document 04/01/17 00:45 [id number] [email or web address] 04/01/17 00:48 [id number] 04/01/17 00:45 PMRU Outcome: Education Outcome/Goals Demonstrate/ Verbalize Understanding of Written Discharge Instructions Demonstrates Skills Encourage Questions /GI-Improve/Maintain Start: 03/31/17 21:25 Freq: DAILY Status: Active Target: Activity Type Activity Date Activity User E-Sign Co-Sign Detail Recorded Client Recorded Date Recorded By Document 04/01/17 00:45 [id number] [id number] 04/01/17 00:48 [id number] 04/01/17 00:45 PMRU Outcome: Genitourinary/ Gastrointestinal Genitourinary- Outcome/Goals Maintain/ Achieve Urinary Continence Gastrointestinal-Outcome/Goals Prevent Constipation Bowel Regularity at Home Mobility- Improve/Maintain Start: 03/31/17 14:52 Freq: DAILY Status: Active Target: Activity Type Activity Date Activity User E-Sign Co-Sign Detail Recorded Client Recorded Date Recorded By Document 04/01/17 12:35 [id number] 04/01/17 12:35 [id number] 04/01/17 12:35 PMRU Outcome: Mobility Physical Therapy Evaluation and Yes Treatment Activity OOB with Assistance Yes WBAT Yes: BLE Device Yes Assistance Yes Patient to be seen 5x/wk for 60-120 min/ Therex day for: Mobility Training Gait Training Balance Outcome/Goals Maintain/ Achieve Baseline Mobility Status Improve Mobility Status Demonstrates Proper Use of Assistive Devices Free from Complications of Immobility Progression Toward Outcome/Goals Progressing Bed Mobility Yes: Independent Transfers Yes: Modified independent with RW Gait x ft Yes: Modified independent 150 ' with RW Up/Down Stairs Yes: Independent 4 steps 2 rails With HEP Yes: Independent Goal Comment B knee 0-90 Pain/Comfort- Improve/Maintain Start: 03/31/17 21:25 Freq: DAILY Status: Active Target: Activity Type Activity Date Activity User E-Sign Co-Sign Detail Recorded Client Recorded Date Recorded By Document 04/01/17 00:45 [id number] [email or web address] 04/01/17 00:48 [id number] 04/01/17 00:45 PMRU Outcome: Pain/Comfort Outcome/Goals Demonstrates Knowledge and Use of Available Comfort Measures Achieves Acceptable Comfort/Pain Level as Determined by Patient/Condit Maintain Comfort Level Allowing Patient to Fully Participate in Rehab Respiratory - Improve/Maintain Start: 03/31/17 21:25 Freq: DAILY Status: Active Target: Activity Type Activity Date Activity User E-Sign Co-Sign Detail Recorded Client Recorded Date Recorded By Document 04/01/17 00:45 [id number] [email or web address] 04/01/17 00:48 [id number] 04/01/17 00:45 PMRU Outcome: Respiratory Does Patient Have a Trach No Safety- Improve/Maintain Start: 03/31/17 21:25 Freq: DAILY Status: Active Target: Activity Type Activity Date Activity User E-Sign Co-Sign Detail Recorded Client Recorded Date Recorded By Document 04/01/17 00:45 [id number] 04/01/17 00:48 [id number] 04/01/17 00:45 PMRU Outcome: Safety Outcome/Goals Remain Free of Injury or Harm Cooperates with Safety Measures for Least Restrictive Environment Skin- Improve/Maintain Start: 03/31/17 21:25 Freq: DAILY Status: Active Target: Activity Type Activity Date Activity User E-Sign Co-Sign Detail Recorded Client Recorded Date Recorded By Document 04/01/17 00:45 [id number] [email or web address] 04/01/17 00:48 [id number] 04/01/17 00:45 PMRU Outcome: Skin Outcome/Goals Maintain/ Improve Skin Intergrity Free from Decubitus Surgical Incisions Healing Medicine Note: Length of Stay: 2 days Anticipated Discharge Destination: Home Tentative Discharge Date: 04/03/17 Discharged to: Home
[2017-04-01] MEDS ORDERED: Warfarin TAB(*) 1 MG PO SCH (17:00)
[2017-04-01] MEDS: Atorvastatin* 20 MG TAB PO SCH (17:42)
[2017-04-01] MEDS: oxyCODONE SR TAB(*) 20 MG TAB.SR PO SCH (20:16)
--- NOTE | 2017-04-01 21:20 | PN ---
Progress Note - Progress Note Date of Service: 04/01/17 Note: Alejandrina visited. She was discussed in interdisciplinary plan of care rounds. Doing very well with her ability to ambulate and transfer. Back on Lisinopril and HCTZ. Will increase Lisinopril to 20. Current Medications Acetaminophen (Tylenol Tab*) 650 mg PO Q6H PRN PRN Reason: FEVER/PAIN Acyclovir (Zovirax Tab*) 800 mg PO DAILY [facility] Last Admin: 04/01/17 07:58 Dose: 800 mg Atorvastatin Calcium (Lipitor*) 20 mg PO 1700 [facility] Last Admin: 04/01/17 17:42 Dose: 20 mg Bisacodyl (Dulcolax Supp*) 10 mg [place] DAILY PRN PRN Reason: CONSTIPATION Docusate Sodium (Colace Cap*) 100 mg PO BID [facility] Last Admin: 04/01/17 20:16 Dose: 100 mg Hydrochlorothiazide (Hydrodiuril Tab*) 25 mg PO DAILY [facility] Last Admin: 04/01/17 07:58 Dose: 25 mg Lisinopril (Prinivil Tab*) 10 mg PO DAILY [facility] Last Admin: 04/01/17 07:59 Dose: 10 mg Magnesium Hydroxide (Milk Of Magnesia Liq*) 30 ml PO Q6H PRN PRN Reason: CONSTIPATION Oxycodone HCl (Roxycodone Tab*) 5 mg PO Q4H PRN PRN Reason: PAIN - MODERATE TO SEVERE Last Admin: 04/01/17 00:20 Dose: 5 mg Oxycodone HCl (Roxycodone Tab*) 10 mg PO Q4H PRN PRN Reason: PAIN - SEVERE Last Admin: 04/01/17 15:55 Dose: 10 mg Oxycodone HCl (Oxycontin(*)) 20 mg PO BEDTIME [facility] Last Admin: 04/01/17 20:16 Dose: 20 mg Senna (Senokot Tab*) 2 tab PO BEDTIME PRN PRN Reason: CONSTIPATION Venlafaxine HCl (Effexor Xr Cap*) 75 mg PO TID [facility] Last Admin: 04/01/17 20:16 Dose: 75 mg Warfarin Sodium (Coumadin Tab(*)) 1 mg PO DAILY@1700 [facility] PRN Reason: Protocol Last Admin: 04/01/17 17:42 Dose: 1 mg Laboratory Results - last 24 hr 04/01/17 04/01/17 04/01/17 08:17 08:18 08:18 WBC 8.6 RBC 2.55 L Hgb 8.1 L Hct 24 L MCV 93 MCH 32 H MCHC 34 RDW 13 Plt Count 289 MPV 7 L Neut % (Auto) 66.5 Lymph % (Auto) 18.5 L Merrick % (Auto) 9.7 H Eos % (Auto) 4.4 Baso % (Auto) 0.9 Absolute Neuts (auto) 5.7 Absolute Lymphs (auto) 1.6 Absolute Monos (auto) 0.8 Absolute Eos (auto) 0.4 Absolute Basos (auto) 0.1 Absolute Nucleated RBC 0.01 Nucleated RBC % 0.1 INR (Anticoag Therapy) 2.12 H Sodium 138 Potassium 3.7 Chloride 104 Carbon Dioxide 29 Anion Gap 5 BUN 11 Creatinine 0.57 Est GFR ( Amer) 137.8 Est GFR (Non-Af Amer) 107.1 BUN/Creatinine Ratio 19.3 Glucose 101 H Calcium 8.3 L Total Bilirubin 0.60 AST 29 ALT 29 Alkaline Phosphatase 61 Total Protein 5.9 L Albumin 3.0 L Globulin 2.9 Albumin/Globulin Ratio 1.0 Vital Signs Temp Pulse Resp BP Pulse Ox 99.4 F 94 18 137/63 95 04/01/17 04:31 04/01/17 04:31 04/01/17 20:16 04/01/17 04:31 04/01/17 05:28 EXAM: HEENT: EOMI LUNGS: CTA Bilaterally HEART: Reg rhythm ABDOMEN: Soft, +BS EXTREMITIES: Wounds clean ASSESSMENT/PLAN: 1. S/P bilateral TKR: PT/OT. ROM exercises 2. HTN: back on HCTZ/Lisinopril, increase lisinopril to 20 3. DVT Prophylaxis: Coumadin to restart, INR down to 2.12. Check INR in am 4. Acute blood loss anemia: Hb/Hct darrel to 8.1/24 5. Analgesia: She did not sleep with OxyContin last night. Will see how it works tonight. October d/c 6. Code Status: full code
[2017-04-02] MEDS: Hydrochlorothiazide TAB* 25 MG PO SCH (08:08)
[2017-04-02] MEDS: Venlafaxine EXT RELEASE CAP* 75 MG PO SCH ×3 (08:08→20:15)
[2017-04-02] MEDS: Docusate CAP* 100 MG PO SCH ×2 (08:09→20:15)
[2017-04-02] MEDS: Acyclovir* 400 MG TAB PO SCH (08:09)
[2017-04-02] MEDS: Lisinopril TAB* 10 MG PO SCH (08:09)
[2017-04-02] MEDS: oxyCODONE TAB* 5 MG TAB PO PRN (08:09)
[2017-04-02] MEDS ORDERED: Warfarin TAB(*) 1 MG PO SCH (12:54)
[2017-04-02] MEDS: oxyCODONE/Acetamin 5/325 MG* TAB PO PRN ×3 (13:06→21:40)
[2017-04-02] MEDS ORDERED: Warfarin TAB(*) 2 MG PO SCH (17:00)
[2017-04-02] MEDS: Atorvastatin* 20 MG TAB PO SCH (17:22)
--- NOTE | 2017-04-02 19:43 | PN ---
Progress Note - Progress Note Date of Service: 04/02/17 Note: Alejandrina was visited. She is doing well. Therapy notes read and reviewed. She is ready for discharge in the morning. INR below 2 today, will increase Coumadin. Back on regular Zestoretic dose Current Medications Acetaminophen (Tylenol Tab*) 650 mg PO Q6H PRN PRN Reason: FEVER/PAIN Acyclovir (Zovirax Tab*) 800 mg PO DAILY [facility] Last Admin: 04/02/17 08:09 Dose: 800 mg Atorvastatin Calcium (Lipitor*) 20 mg PO 1700 [facility] Last Admin: 04/02/17 17:22 Dose: 20 mg Bisacodyl (Dulcolax Supp*) 10 mg [place] DAILY PRN PRN Reason: CONSTIPATION Docusate Sodium (Colace Cap*) 100 mg PO BID [facility] Last Admin: 04/02/17 08:09 Dose: 100 mg Hydrochlorothiazide (Hydrodiuril Tab*) 25 mg PO DAILY [facility] Last Admin: 04/02/17 08:08 Dose: 25 mg Lisinopril (Prinivil Tab*) 20 mg PO DAILY [facility] Last Admin: 04/02/17 08:09 Dose: 20 mg Magnesium Hydroxide (Milk Of Magnesia Liq*) 30 ml PO Q6H PRN PRN Reason: CONSTIPATION Oxycodone/Acetaminophen (Percocet 5/325 Tab*) 2 tab PO Q4H PRN PRN Reason: PAIN - SEVERE Last Admin: 04/02/17 17:21 Dose: 2 tab Senna (Senokot Tab*) 2 tab PO BEDTIME PRN PRN Reason: CONSTIPATION Venlafaxine HCl (Effexor Xr Cap*) 75 mg PO TID [facility] Last Admin: 04/02/17 14:20 Dose: 75 mg Warfarin Sodium (Coumadin Tab(*)) 2 mg PO DAILY@1700 [facility] PRN Reason: Protocol Last Admin: 04/02/17 17:22 Dose: 2 mg Laboratory Results - last 24 hr 04/02/17 07:48 INR (Anticoag Therapy) 1.69 H Vital Signs Temp Pulse Resp BP Pulse Ox 98.4 F 90 20 111/60 97 04/02/17 15:40 04/02/17 15:40 04/02/17 17:21 04/02/17 15:40 04/02/17 18:05 EXAM: HEENT: EOMI LUNGS: CTA Bilaterally HEART: Reg rhythm ABDOMEN: Soft, +BS EXTREMITIES: Wounds clean ASSESSMENT/PLAN: 1. S/P bilateral TKR: PT/OT. ROM exercises 2. HTN: back on HCTZ/Lisinopril 3. DVT Prophylaxis: Coumadin 2 mg tonight, INR down to 1.69. Check INR in am 4. Acute blood loss anemia: Hb/Hct darrel to 8.1/24 5. Analgesia: She did not sleep with OxyContin last night. Will d/c, change oxycodone to Percocet 6. Code Status: full code
[2017-04-03] MEDS: oxyCODONE/Acetamin 5/325 MG* TAB PO PRN ×3 (02:41→10:28)
[2017-04-03 07:44] VITALS: BP 144/59
[2017-04-03] MEDS: Docusate CAP* 100 MG PO SCH (08:49)
[2017-04-03] MEDS: Hydrochlorothiazide TAB* 25 MG PO SCH (08:49)
[2017-04-03] MEDS: Acyclovir* 400 MG TAB PO SCH (08:49)
[2017-04-03] MEDS: Venlafaxine EXT RELEASE CAP* 75 MG PO SCH (08:49)
[2017-04-03] MEDS: Lisinopril TAB* 10 MG PO SCH (08:50)
--- NOTE | 2017-04-04 17:15 | DS ---
DISCHARGE SUMMARY: DATE OF ADMISSION: 03/31/17 DATE OF DISCHARGE: 04/03/17 DISCHARGE DIAGNOSES: 1. Bilateral total knee replacement. 2. Hypertension. 3. Hypercholesterolemia. 4. Acute blood loss anemia. HISTORY OF PRESENT ILLNESS AND HOSPITAL COURSE: For complete history of the events leading up to her rehab stay, please see the history and physical dictated by me on 03/31/17. While on the rehab unit, the patient was largely medically stable. She did not require a transfusion for her anemia. Her blood counts rebounded with a hemoglobin of 8 and hematocrit of 24. The patient received adequate analgesia with oral pain medications. She was given Percocet. For nighttime, she was given OxyContin, which she did not feel was effective and this was discontinued. The patient was otherwise medically stable. She was maintained on Coumadin for DVT prophylaxis. At the time of discharge, her INR had fallen to 1.56. Her Coumadin dose at that point was 2 mg. The patient was seen by Physical and Occupational Therapy while on the rehab unit. She made good gains with both disciplines. With physical therapy at the time of admission, the patient required supervision for transfer, supervision for ambulation. With occupational therapy, she was contact guard for toilet transfers and toileting. By the time of discharge, she was independent with all activities. She was ambulating 200 feet or more. The patient was discharged home on 04/03/17. DISCHARGE DIET: Regular. DISCHARGE MEDICATIONS: Included: 1. Lipitor 20 mg daily at 5 p.m. 2. Effexor 75 mg 3 times a day. 3. Coumadin 2 mg daily at 5 p.m. 4. Percocet 5/325 two tablets every 4 hours as needed. 5. Zovirax 400 mg twice a day. SERVICES AFTER DISCHARGE: Through [facility], she will have home nursing, home physical therapy, and a home health aide. FOLLOWUP: With Dr. Carmel Meyer in 7 to 10 days for suture removal. [id number]/[facility] #: [id number] [facility]
== END 2017-04-03 11:30 | disposition home or self-care (01) | DRG 860 ==
LOC: PMRU 13:05
PROVIDERS: ADMIT Physical Medicine & Rehabilitation; ATTEND Physical Medicine & Rehabilitation
PROC: F07Z5ZZ Bed Mobility Treatment (ICD-10-PCS; principal; 2017-03-31)
PROC: F07Z8ZZ Transfer Training Treatment (ICD-10-PCS; 2017-03-31)
PROC: F07Z9ZZ Gait Training/Functional Ambulation Treatment (ICD-10-PCS; 2017-03-31)
PROC: F08Z0ZZ Bathing/Showering Techniques Treatment (ICD-10-PCS; 2017-03-31)
PROC: F08Z1ZZ Dressing Techniques Treatment (ICD-10-PCS; 2017-03-31)
PROC: F08Z3ZZ Feeding/Eating Treatment (ICD-10-PCS; 2017-03-31)
DX: Z47.1 Aftercare following joint replacement surgery (principal); E78.00 Pure hypercholesterolemia, unspecified; Z96.653 Presence of artificial knee joint, bilateral; I10 Essential (primary) hypertension; Z79.899 Other long term (current) drug therapy; Z88.1 Allergy status to other antibiotic agents
CPT/HCPCS: 36415; 80053; 85025; 85610; A9270-GY